=== PATIENT | male | born 1970 | race African-American/Black ===

== ENCOUNTER 2019-01-27 17:02 | Emergency (ER) | payer MEDICAID ==
[~2019-01-27] VITALS: Ht 182.9 cm; Wt 154.5 kg
[2019-01-28] MEDS ORDERED: IBUPROFEN 600MG TABLET PO ONE
[2019-01-28 00:02] VITALS: BP 155/92
[2019-01-28] MEDS ORDERED: LORATADINE/PSEUDOEPHED 5/120MG TABLET 12HR PO SCH (09:00)
== END 2019-01-28 00:03 | disposition home or self-care (01) ==
LOC: ER 17:05
DX: J30.2 Other seasonal allergic rhinitis (principal); R51 Headache; H57.13 Ocular pain, bilateral; I10 Essential (primary) hypertension; Z90.49 Acquired absence of other specified parts of digestive tract; Z98.890 Other specified postprocedural states
CPT/HCPCS: 71045; 99283